=== PATIENT | male | born 1970 | race Caucasian/White ===

== ENCOUNTER → 2018-02-17 09:57 | Outpatient (CLI) | payer BC, SELFPAY ==
[2018-02-17 10:33] LABS: Absolute Lymphocyte Count 3.57 X10^3/ul (0.83-4.51); Absolute Neutrophil Count 5.6 X10^3/uL (2.0-7.7); Basophil# 0.07 X10^3/uL; Basophil% 0.7 % (0-1); Eosinophil# 0.26 X10^3/uL; Eosinophils% 2.5 % (0-5); Hematocrit 47.5 % (40-54); Hemoglobin 16.3 g/dl (13.0-16.5); Lymphocyte # 3.57 X10^3/ul (4.0); Lymphocyte % 34.4 % (19-41); Mean Corp Hgb Conc 34.3 g/gl (32-36); Mean Corpuscular Hgb 29.7 pg (27.0-32.0); Mean Corpuscular Volume 86.5 fL (80-94); Mean Platelet Vol. 9.3 fl (6.2-12.0); Monocyte# 0.86 X10^3/uL; Monocyte% 8.3 % (0-10); Neutrophil # 5.62 X10^3/uL (2.7-7.7); Neutrophil % 54.1 % (47-70); Platelet Count 245 K/mm3 (150-450); RBC Distribution Width CV 12.5 % (11.6-14.6); RBC Distribution Width SD 39.7 fl (35.1-43.9); Red Blood Count 5.49 M/mm3 (4.6-6.2); White Blood Count 10.4 K/mm3 (4.4-11.0)
[2018-02-17 10:34] LABS: POSITIVE COUNT NO; POSITIVE DIFFERENTIAL NO; POSITIVE MORPHOLOGY NO
== END ==
DX: R53.83 Other fatigue (principal)
CPT/HCPCS: 36415; 85025

== ENCOUNTER → 2022-05-19 | Outpatient (CLI) | payer BC, SELFPAY ==
--- NOTE | 2022-05-19 07:55 | ART_ITS ---
Reason For Study: Aftercare Procedure A bilateral upper extremity continuous wave Doppler with analog waveform analysis and segmental pressures. Left Segmental Pressures Left brachial= 140mmHg. Left radial= 156mmHg. Left ulnar= 173mmHg. Left digit = 135 mmHg. The left radial waveforms are triphasic. The left ulnar waveforms are triphasic. Right Segmental Pressures Right brachial= 130mmHg. Right radial= 152mmHg. Right ulnar= 166mmHg. Right digit = 138 mmHg. The right radial waveforms are triphasic. The right ulnar waveforms are triphasic. Indices The right wrist-brachial index is 1.19. The right digital-brachial index is 0.99. The left wrist- brachial index is 1.24. The left digital-brachial index is 0.96. VL/Ankle Brachial Index Interpretation Summary Bilateral wirsts with triphasic flow and WBI 1.19 and 1.24. Ordering Physician: Frederick Lacey Referring Physician: FREDERICK LACEY DR. Performed By: Wu Sales RVT
--- NOTE | 2022-05-19 07:55 | ADUUE_ITS ---
Reason For Study: Aftercare LEFT Left Subclavian velocity = 76.3 cm/sec. Left Axillary velocity = 96.6 cm/sec. Left Brachial velocity = 132.6 cm/sec. Left Radial velocity = 85.3 cm/sec. Left Ulnar velocity = 88.5 cm/sec. /US Art Duplex Unilat UP Extrem Interpretation Summary Left arm no stenosis and triphasic flow. Ordering Physician: Thierry Shi Referring Physician: Thierry Shi Performed By: Wu Sales RVT
--- NOTE | 2022-05-19 07:55 | AAVD_ITS ---
Reason For Study: Aftercare Aorta Measurements Aorta Doppler Measurements Proximal aorta measures2.17 x 2.33cm. in cross- Peak systolic flow velocities within the proximal sectional axis. aorta measure 86.8 cm/sec. Proximal aorta measures2.32cm. in longitudinal Peak systolic flow velocities within the mid aorta axis. measure 99.7 cm/sec. Mid aorta measures1.54 x 1.52cm. in cross- Peak systolic flow velocities within the distal sectional axis. aorta measure 77.8 cm/sec. Mid aorta measures1.50cm. in longitudinal axis. Distal aorta measures1.49 x 1.54cm. in cross- sectional axis. Distal aorta measures1.49cm. in longitudinal axis. Left Iliac Artery Left iliac artery measures 0.67 x 0.73 cm. in the cross-sectional axis. Left iliac artery measures 0.79 cm. in the longitudinal axis. Peak systolic velocity in the left iliac artery measures 337.1 cm/sec. Right Iliac Artery Right iliac artery measures 0.74 x 0.77 cm. in the cross-sectional axis. Right iliac artery measures 0.77 cm. in the longitudinal axis. Peak systolic velocity in the right iliac artery measures 162.3 cm/sec. Procedure Aorta IVC Iliac vasculature or bypass grafts 48823. The exam was diagnostic. Exam performed in department. VL/Abd Aortic/IVC Duplex scan Interpretation Summary Left JOYCE severe stenosis, otherwise no aortoiliac stenosis or aneurysm. Ordering Physician: Thierry Shi Referring Physician: Thierry Shi Performed By: Wu Sales RVT
--- NOTE | 2022-05-19 07:56 | ART_ITS ---
Reason For Study: Aftercare Procedure A bilateral lower extremity continuous wave Doppler with analog waveform analysis and ankle brachial indexes. Left Segmental Pressures Left brachial= 138mmHg. Left posterior tibial artery = 142mmHg. Left dorsalis pedis artery = 133mmHg. Left digit = 78 mmHg. The left posterior tibial artery waveforms are triphasic. The left dorsalis pedis waveforms are triphasic. Right Segmental Pressures Right brachial= 140mmHg. Right posterior tibial artery = 141mmHg. Right dorsalis pedis artery = 141mmHg. Right digit = 114 mmHg. The right posterior tibial artery waveforms are triphasic. The right dorsalis pedis waveforms are triphasic. Indices The right ankle brachial index by the posterior tibial artery is 1.01. The right ankle brachial index by the dorsalis pedis is 1.01. The right digital-brachial index is 0.81. The left ankle brachial index by the posterior tibial artery is 1.01. The left ankle brachial index by the dorsalis pedis is 0.95. The left digital-brachial index is 0.56. VL/Ankle Brachial Index Interpretation Summary bilateral normal at rest with triphasic flow and SKYE 1.01 and 1.01. DBI 0.81 an d 0.56. Ordering Physician: Frederick Lacey Referring Physician: FREDERICK LACEY DR. Performed By: Wu Sales RVT
== END | disposition home or self-care (01) ==
LOC: CVS 07:54
PROVIDERS: Referring Provider Surgery Vascular Surgery; Visit Provider Surgery Vascular Surgery
DX: I70.213 Atherosclerosis of native arteries of extremities with intermittent claudication, bilateral legs (principal); I77.1 Stricture of artery; Z48.812 Encounter for surgical aftercare following surgery on the circulatory system
CPT/HCPCS: 93922; 93931; 93978

== ENCOUNTER → 2023-07-23 | Outpatient (CLI) | payer BC, SELFPAY ==
--- NOTE | 2023-07-23 08:49 | ADUUE_ITS ---
Reason For Study: LUE thrombectomy LEFT Left Subclavian velocity = 104.5 cm/sec. Left Axillary velocity = 140.2 cm/sec. Left Brachial velocity = 173.3 cm/sec. Left Radial velocity = 98.3 cm/sec. Left Ulnar velocity = 89.2 cm/sec. /US Art Duplex Unilat UP Extrem Interpretation Summary This is a normal bilateral upper extremity arterial duplex exam. Ordering Physician: Thierry Shi Referring Physician: Thierry Shi Performed By: Giacomo Hernandez RVT and Student
--- NOTE | 2023-07-23 08:49 | ART_ITS ---
Reason For Study: s/p LUE thrombectomy Procedure A bilateral upper extremity continuous wave Doppler with analog waveform analysis and segmental pressures. Left Segmental Pressures Left brachial= 158mmHg. Left forearm by way of the radial artery = 176mmHg. Left radial= 179mmHg. Left ulnar= 193mmHg. The left radial waveforms are triphasic. The left ulnar waveforms are triphasic. Right Segmental Pressures Right brachial= 150mmHg. Right forearm pressure by way of the radial artery = 166mmHg. Right radial= 177mmHg. Right ulnar= 180mmHg. The right radial waveforms are triphasic. The right ulnar waveforms are triphasic. Indices The right wrist-brachial index is 1.14. The left wrist-brachial index is 1.22. VL/Ankle Brachial Index Interpretation Summary Normal bilateral WBI. Ordering Physician: Frederick Lacey Referring Physician: FREDERICK LACEY DR. Performed By: Giacomo Hernandez RVT and Student
== END | disposition home or self-care (01) ==
LOC: CVS 08:47
PROVIDERS: Referring Provider Surgery Vascular Surgery; Visit Provider Surgery Vascular Surgery
DX: Z48.812 Encounter for surgical aftercare following surgery on the circulatory system (principal); I70.213 Atherosclerosis of native arteries of extremities with intermittent claudication, bilateral legs; I77.1 Stricture of artery; I10 Essential (primary) hypertension
CPT/HCPCS: 93922; 93931

== ENCOUNTER → 2023-09-21 | Outpatient (CLI) | payer BC, SELFPAY ==
--- NOTE | 2023-09-21 08:46 | AAVD_ITS ---
Reason For Study: HX BLE Iliac Stent Aorta Measurements Aorta Doppler Measurements Proximal aorta measures2.54 x 2.49cm. in cross- Peak systolic flow velocities within the proximal sectional axis. aorta measure 73.5 cm/sec. Proximal aorta measures2.43cm. in longitudinal Peak systolic flow velocities within the mid aorta axis. measure 93.0 cm/sec. Mid aorta measures1.77 x 1.88cm. in cross- Peak systolic flow velocities within the distal sectional axis. aorta measure 85.3 cm/sec. Mid aorta measures1.71cm. in longitudinal axis. Distal aorta measures1.37 x 1.25cm. in cross- sectional axis. Distal aorta measures1.39cm. in longitudinal axis. Left Iliac Artery Left iliac artery measures 0.73 x 0.69 cm. in the cross-sectional axis. Left iliac artery measures 0.77 cm. in the longitudinal axis. Peak systolic velocity in the left iliac artery measures 267.2 cm/sec. Lt EIA PSV = 278.7 cm/s. Right Iliac Artery Right iliac artery measures 0.76 x 0.78 cm. in the cross-sectional axis. Right iliac artery measures 0.73 cm. in the longitudinal axis. Peak systolic velocity in the right iliac artery measures 154.9 cm/sec. RT EIA PSV = 329.0 cm/s. Procedure Aorta IVC Iliac vasculature or bypass grafts [id number]. The exam was diagnostic. Exam performed in department. VL/Abd Aortic/IVC Duplex scan Interpretation Summary No aortic aneurysm or stenosis. Right EIA severe. Left JOYCE and EIA moderate to severe stenosis. Ordering Physician: Thierry Shi Referring Physician: Thierry Shi Performed By: Wu Sales RVT
--- NOTE | 2023-09-21 08:46 | ART_ITS ---
Reason For Study: HX BLE Iliac Stents Procedure A bilateral lower extremity continuous wave Doppler with analog waveform analysis and ankle brachial indexes. Left Segmental Pressures Left brachial= 139mmHg. Left posterior tibial artery = 157mmHg. Left dorsalis pedis artery = 150mmHg. Left digit = 99 mmHg. The left posterior tibial artery waveforms are triphasic. The left dorsalis pedis waveforms are triphasic. Right Segmental Pressures Right brachial= 146mmHg. Right posterior tibial artery = 141mmHg. Right dorsalis pedis artery = 125mmHg. Right digit = 113 mmHg. The right posterior tibial artery waveforms are triphasic. The right dorsalis pedis waveforms are triphasic. Indices The right ankle brachial index by the posterior tibial artery is 0.97. The right ankle brachial index by the dorsalis pedis is 0.86. The right digital-brachial index is 0.77. The left ankle brachial index by the posterior tibial artery is 1.08. The left ankle brachial index by the dorsalis pedis is 1.03. The left digital-brachial index is 0.68. VL/Ankle Brachial Index Interpretation Summary Resting ankle-brachial indices appear bilaterally normal. Ordering Physician: Thierry Shi Referring Physician: Desirae Farrar Performed By: Wu Sales RVT
== END | disposition home or self-care (01) ==
PROVIDERS: PCP Nurse Practitioner Primary Care; Referring Provider Surgery Vascular Surgery; Visit Provider Surgery Vascular Surgery
DX: I70.213 Atherosclerosis of native arteries of extremities with intermittent claudication, bilateral legs (principal); I77.1 Stricture of artery; Z48.812 Encounter for surgical aftercare following surgery on the circulatory system
CPT/HCPCS: 93922; 93978

== ENCOUNTER 2024-05-30 06:06 | Emergency (ER) | payer OTHER, BC, SELFPAY ==
[2024-05-30 06:07] VITALS: BP 190/90; PULSE 102; RESP 18; TEMP 36.8; O2SAT 97; BMI 31.4
--- NOTE | 2024-05-30 06:19 | EDS_ITS ---
HPI History of Present Illness Chief Complaint: Lower Extremity Injury Informant: patient Narrative Narrative: 54-year-old male presenting with a work related injury that happened just prior to arrival. He states a heavy table fell off of a pickering and fell onto his right foot. He had his steel toe boots on at the time. He is not able to put any weight on his right foot due to the pain/injury. He sustained scrapes to both lower legs just above the ankles, these areas are not really bothering him much, and he denies pain at the ankles or the left lower extremity, where he can bear weight without difficulty. [facility] Medical History (Updated 05/30/24 @ 07:[address] Kedar Macedo MD) PAD (peripheral artery disease) Home Medications ?Medication ?Instructions ?Recorded ?Last Taken ?Type aspirin 81 mg tablet,delayed 81 mg PO DAILY 05/30/24 U nknown History release (Adult Aspirin Regimen) oxycodone-acetaminophen 5 mg-325 1 tab PO Q6H PRN PRN Pain 3 days 05/30/24 Unknown Rx mg tablet #12 TABLETS Allergy/AdvReac Type Severity Reaction Status Date / Time No Known Allergies Allergy Verified 05/30/24 06:07 Surgical History (Updated 05/30/24 @ 06:[address] Kedar Macedo MD) S/P arterial stent Social History Smoking Status: Current every day smoker tobacco type: e-cigarettes ROS ROS ED Constitutional Constitutional ED: Denies chills or fever(s) Musculoskeletal Musculoskeletal: Reports extremity pain; Denies neck pain Integumentary Reports Abrasions; Denies rash or wounds Neurologic Neurologic: Denies paresthesias or weakness EXAM Physical Exam Const Vital Signs: 05/30/24 06:07 Temperature 98.3 F Temperature Source Oral Pulse Rate 102 H Respiratory Rate 18 Blood Pressure 190/90 H Blood Pressure Mean 123 Pulse Ox 97 Oxygen Delivery Method Room Air Positive well nourished and well developed General Appearance ED: well developed and NAD Neck full ROM and supple Back/Spine normal ROM and normal to inspection Extremity Extremity Narrative: Swelling and tenderness to the entire right midfoot as well as the dorsal first metatarsal. The MTPJ's and the toes are all nontender. He is able to range the ankle there is some mild swelling but no tenderness at the ankle bones or the proximal fibula or the rest of the lower leg in between the 2 areas. Full range of motion of the hip and knee without difficulty or pain limitation. Full range of motion of the left lower extremity without difficulty or limitation, as well as both upper extremities. There is no deformity of the foot. There is no tenderness at the base of the fifth metatarsal. The skin is intact throughout, he does have some mild ecchymosis plantar aspect of the first metatarsal and some tenderness there. Neuro oriented x3, no focal motor deficits and no sensory deficits noted Sensorium / Orientation: alert Psych mental status grossly normal and thought process normal Skin no wounds Skin Narrative: Abrasion to the distal aspect of the anterior right lower leg above the ankle, as well as a smaller linear 1 in the left side just above the ankle as well. No lacerations. No active bleeding. Rashes: no rashes MDM MDM MDM Narrative Medical decision making narrative: Three-view x-ray series of the right foot was obtained, and on my interpretation there is suspicion for diastases between the 1st and 2nd metatarsals on the AP view. I discussed with Dr. Jaquez with podiatry, he agrees and advises getting comparison views of the uninjured foot to see if it is real, so I did this and t hose 3 views of my interpretation are normal, showing a clear difference, so there is persistent suspicion for Lisfranc injury. Therefore a CT was obtained of the right foot, I reviewed the images and the report which I agree with, which is consistent with fractures of the base of the 2nd and 3rd metatarsals. Given possible Lisfranc complex injury, podiatry recommended nonweightbearing, fabricate a posterior splint which was done see the procedure note, and work restrictions and close outpatient follow-up. Patient declined pain medication here but he excepted a prescription for some which I suspect he will need. Given appropriate follow-up instructions and temporary restrictions. Radiography Diagnostic Testing: Clinical Impression(s) from Imaging Studies Foot X-Ray 05/30/24 06:22 IMPRESSION: No fracture or dislocation. If symptoms persist, may follow-up with repeat romelia ging in 7-10 days as warranted. Reading Location: [id number] Foot X-Ray 05/30/24 06:40 IMPRESSION: No radiographic evidence of an acute bone abnormality. Reading Location: [id number] Lower Extremity CT 05/30/24 06:45 IMPRESSION: Small intra-articular fracture at the base of the 2nd and also at the base of the 3rd metatarsals for example sagittal 23 and 25, coronal 44 and 50. Reading Location: [id number] Management Discussion w/another healthcare provider: Hospice Clinical Supervisor (podiatry Dr. Jaquez) Procedures Lower Extremity Splints Lower Extremity Splint: Orthoglass (Short leg posterior; neurovascularly intact distally after placement, foot placed approximately 90 degrees dorsiflexion.) Splint Fabrication: Fabricated Location: Right Discharge Plan Triage Chief Complaint: Lower Extremity Injury ED Provider: Kedar Macedo Dx/Rx/DC Orders Clinical Impression: Closed fracture of third metatarsal bone of right foot, Abrasion, left lower leg, initial encounter, Abrasion, right lower leg, initial encounter, Closed fracture of second metatarsal bone of right foot Instructions: Using Crutches: [id number], ED Fracture, Foot Prescriptions: New oxycodone-acetaminophen 5-325 mg tablet 1 tab PO Q6H PRN PRN (Reason: Pain) 3 Days Qty: 12 0RF No Action aspirin [Adult Aspirin Regimen] 81 mg tablet,delayed release (DR/EC) 81 mg PO DAILY Stand Alone Forms: Work Status Form Primary Care Provider: Desirae Farrar TAX COMPLIANCE OFFICER Referrals: Gwyn Jaquez DPM [Med Staff - Active Staff] - As soon as possible Print Language: [place] Disposition Disposition: Home, Self Care
--- NOTE | 2024-05-30 06:22 | RAD_ITS ---
EXAM: Foot minimum three views x-ray CLINICAL HISTORY: Trauma COMPARISON: None available TECHNIQUE: Three views right foot FINDINGS: No fracture or dislocation. The joint spaces appear within limits. Soft tissues appear within limits. RAD/Foot min 3 Views IMPRESSION: No fracture or dislocation. If symptoms persist, may follow-up with repeat romelia ging in 7-10 days as warranted. Reading Location: [id number]
--- NOTE | 2024-05-30 06:40 | RAD_ITS ---
EXAM: Left foot. CLINICAL HISTORY: Comparison views. COMPARISON: None. TECHNIQUE: Three views. FINDINGS: Normal talus, calcaneus, and tarsal bones. Normal visualized subtalar, talonavicular, calcaneocuboid, tarsal and tarsometatarsal articulations. Normal metatarsi. Normal metatarsophalangeal joint of the great toe. Normal tibial and fibular sesamoid bones. Normal interphalangeal joint of the great toe. Normal phalanges of the great toe. Normal second through fifth metatarsophalangeal joints. Normal interphalangeal joints of the lesser toes. Normal phalanges of the lesser toes. RAD/Foot min 3 Views IMPRESSION: No radiographic evidence of an acute bone abnormality. Reading Location[facility]
--- NOTE | 2024-05-30 06:45 | CT_ITS ---
PROCEDURE: EXTREMITY LOWER WITHOUT CONTRA 05/30/2024 REASON FOR EXAM: ABN XR - ATTN LISFRANC JOINT TECHNIQUE: Axial CT images of the right foot obtained without intravenous contrast. Coronal and Sagittal reconstruction series were provided. CONTRAST: None One or more dose reduction techniques were used (e.g., Automated exposure control, adjustment of the mA and/or kV according to patient size, use of iterative reconstruction technique). RADIATION DOSE SUMMARY: CTDlvol: 15.35 mGy DLP: 491.92 mGycm FINDINGS: Small intra-articular fracture at the base of the 2nd and also at the base of the 3rd metatarsals for example sagittal 23 and 25, coronal 44 and 50. No significant appearing displacement. No dislocation. The alignment of the Lisfranc joint appears within limits. Soft tissue swelling noted. The anterior and posterior subtalar joints appear within limits. CT/Extremity Lower without Contra IMPRESSION: Small intra-articular fracture at the base of the 2nd and also at the base of t he 3rd metatarsals for example sagittal 23 and 25, coronal 44 and 50. Reading Location: [id number]
[2024-05-30 08:07] VITALS: BP 157/76; PULSE 84; RESP 18; TEMP 37.1; O2SAT 97
== END 2024-05-30 08:08 | disposition home or self-care (01) ==
PROVIDERS: Emergency Provider Emergency Medicine; PCP Nurse Practitioner Primary Care; Visit Provider Emergency Medicine
DX: S80.812A Abrasion, left lower leg, initial encounter (principal); S80.811A Abrasion, right lower leg, initial encounter; Y99.0 Civilian activity done for income or pay; S92.321A Displaced fracture of second metatarsal bone, right foot, initial encounter for closed fracture; S92.331A Displaced fracture of third metatarsal bone, right foot, initial encounter for closed fracture; W22.8XXA Striking against or struck by other objects, initial encounter; Y92.89 Other specified places as the place of occurrence of the external cause; F17.290 Nicotine dependence, other tobacco product, uncomplicated
CPT/HCPCS: 29515; 73630; 73700; 99283